=== PATIENT | female | born 1990 | race African-American/Black ===

== ENCOUNTER → 2017-06-06 | Day surgery (SDC) | payer OTHER | END | disposition home or self-care (01) | LOC: JRADIR 10:35 | PROVIDERS: ATTEND Specialist | PROC: 0G9H3ZX Drainage of Right Thyroid Gland Lobe, Percutaneous Approach, Diagnostic (ICD-10-PCS; principal; 2017-06-06) | PROC: BG44ZZZ Ultrasonography of Thyroid Gland (ICD-10-PCS; 2017-06-06) | DX: E04.1 Nontoxic single thyroid nodule (principal); Z53.8 Procedure and treatment not carried out for other reasons | CPT/HCPCS: 76536-TC ==

== ENCOUNTER → 2018-01-07 | Day surgery (SDC) | payer OTHER ==
--- NOTE | 2018-01-08 16:07 | PATH ---
Cytology Non-Gynecological Report Patient Name: HOWARD REYNA [facility]. Rec. #: [id number] /Age/Gender: 1990 (Age: 27) / F Account: [id number] Location: RADIOLOGY INTER Taken: 01/07/2018 Received: 01/08/2018 Reported: 01/08/2018 Physicians: Meme Yap M.D. Specimen(s) Received LEFT THYROID FNA Clinical History Left thyroid nodule, 1.33 x 1.07 x 1.16 cm Final Diagnosis THYROID, LEFT, FINE NEEDLE ASPIRATION: SATISFACTORY FOR EVALUATION. BETHES[place] III: ATYPIA OF UNDETERMINED SIGNIFICANCE. CLUSTERS OF ATYPICAL FOLLICULAR CELLS WITH MILD NUCLEAR ENLARGEMENT, CLEARING, NUCLEAR GROOVES, AND FOCAL CROWDING IN THE BACKGROUND OF HETEROGENOUS LYMPHOCYTES AND LYMPHOID TANGLES. FRAGMENTS OF SKELETAL MUSCLE IDENTIFIED. Comment: Although the atypia may be secondary to Chronic lymphocytic thyroiditis, a more significant lesion cannot be fully excluded. Suggest clinical/radiologic and serologic correlation; and repeat sampling after an appropriate interval (3-6 months) with material for molecular studies (Thyroseq), as clinically warranted. Electronically Signed Natty Tate M.D. Gross Description Received are eight direct smears, four of which are air-dried and Diff-Quik stained, and four of which are alcohol fixed and Pap stained. Also received is 20 ml of bloody formalin from which one cellblock is prepared.
== END | disposition home or self-care (01) ==
LOC: JRADIR 09:12
PROVIDERS: ATTEND Internal Medicine Endocrinology, Diabetes & Metabolism
PROC: 0G9G3ZX Drainage of Left Thyroid Gland Lobe, Percutaneous Approach, Diagnostic (ICD-10-PCS; principal; 2018-01-07)
DX: E04.1 Nontoxic single thyroid nodule (principal)
CPT/HCPCS: 76942; 88173; 88305-TC